=== PATIENT | male | born 1940 | race Caucasian/White ===

== ENCOUNTER 2019-01-20 20:38 | Emergency (ER) | payer MEDICARE, OTHER ==
[~2019-01-20] VITALS: Ht 177.8 cm; Wt 136.1 kg
[~2019-01-20 20:38] MED LIST: ACTOS 30 MG TAB30 M1 PO; ALLOPURINOL 30300 M1 PO; AMARYL4 MG PO; AMLODIPINE BESYL5 MG; AMLODIPINE BESYL5 MG PO; ANTIVERT25 MG PO; AVODART0.5 MG; BETA-VAL 0.1% O45 GM TOP; CLEOCIN HCL300 MG PO; CLOBETASOL EMOL15 GM TP; COZAAR100 MG; EFUDEX40 GM TP; FOLIC ACID 40400 MC1 PO; FUROSEMIDE 40 M40 M1; HYDROCODON-ACE1 EACH; KETOCONAZOLE60 GM TP; LANTUS100 UNIT/M SUBQ; LANTUSSOLASTAR; NOVOLOG100 UNIT/1 SUBQ; NYAMYC15 GM TOP; SIMVASTATIN40 MG PO; TACLONEX 0.005%60 GM TP; TRICOR145 MG PO; TRIPLE ANTIBIO1 EACH TOP; ZOLOFT50 MG PO
[2019-01-20] MEDS ORDERED: BASAGLAR K100 UNIT/1 SUBQ (21:05)
[2019-01-20] MEDS ORDERED: NORCO 7.5-3251 EACH PO (22:47)
[2019-01-20 23:34] VITALS: BP 143/51
== END 2019-01-20 23:34 | disposition home or self-care (01) ==
LOC: M.ERS 20:38
DX: M25.562 Pain in left knee (principal); E78.00 Pure hypercholesterolemia, unspecified; I10 Essential (primary) hypertension; E11.43 Type 2 diabetes mellitus with diabetic autonomic (poly)neuropathy; N40.0 Benign prostatic hyperplasia without lower urinary tract symptoms; Z79.4 Long term (current) use of insulin; Z87.891 Personal history of nicotine dependence